=== PATIENT | male | born 1960 | race Caucasian/White ===

== ENCOUNTER 2016-11-26 10:37 | Emergency (ER) | payer MEDICARE, OTHER ==
[~2016-11-26] VITALS: Ht 172.7 cm; Wt 81.6 kg
[2016-11-26] MEDS ORDERED: IV NORMAL SALINE 500ML BAG 500 ML IV ONE (11:00)
[2016-11-26] MEDS ORDERED: MORPHINE SULFATE 4 MG/ML DISP.SYRIN. IV ONE ×2 (11:00→11:45)
[2016-11-26] MEDS ORDERED: IOHEXOL 300 MG/ML 75 ML VIAL IV ONE (11:00)
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
[2016-11-26 11:08] LABS: BASO % 0 % (0-3); EOS % 5 % (0-3); HEMATOCRIT 42.2 % (39.0-53.0); HEMOGLOBIN 14.6 g/dL (13.0-17.5); LYMPH # 1.3 x10^3/uL (1.0-4.8); LYMPH % 34 % (24-48); MEAN CORPUSCULAR HEMOGLOBIN 32 pg (25-35); MEAN CORPUSCULAR HGB CONC 35 g/dL (31-37); MEAN CORPUSCULAR VOLUME 91 fL (79-100); MONO % 10 % (0-9); NEUT % 50 % (31-73); PLATELET COUNT 143 x10^3/uL (140-400); RED BLOOD COUNT 4.62 x10^6/uL (4.30-5.70); RED CELL DISTRIBUTION WIDTH 13.6 % (11.5-14.5); WHITE BLOOD COUNT 3.9 x10^3/uL (4.0-11.0)
[2016-11-26 11:22] LABS: ALBUMIN 3.7 g/dL (3.4-5.0); DIRECT BILIRUBIN 0.2 mg/dL (0.0-0.2); TOTAL BILIRUBIN 0.5 mg/dL (0.2-1.0); TOTAL PROTEIN 7.5 g/dL (6.4-8.2)
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
[2016-11-26] MEDS ORDERED: IBUP-1060 PO (12:34)
[2016-11-26 12:35] VITALS: BP 125/87
--- NOTE | 2016-11-26 13:32 | EKG ---
[facility] [address] [place] [address] Test Date: 2016-11-26 Test Time: 10:45:11 Pat Name: CAROL NOLASCO Department: Room: Gender: M Distribution Technician: : 1960 Requested By: SARAH NAVARRO Order Number: [id number] Reading MD: Rupesh Crowley Measurements Intervals [place] Rate: 89 P: 73 FL: 146 QRS: 50 QRSD: 70 T: 78 QT: 360 QTc: 439 Interpretive Statements SINUS RHYTHM Electronically Signed On 11-26-2016 16:56:55 CDT by Rupesh Crowley
== END 2016-11-26 13:00 | disposition home or self-care (01) ==
LOC: ER 10:37
DX: S16.1XXA Strain of muscle, fascia and tendon at neck level, initial encounter (principal); R07.89 Other chest pain; R10.9 Unspecified abdominal pain; I10 Essential (primary) hypertension; J44.9 Chronic obstructive pulmonary disease, unspecified; M10.9 Gout, unspecified; Z88.4 Allergy status to anesthetic agent; V89.2XXA Person injured in unspecified motor-vehicle accident, traffic, initial encounter; Y93.89 Activity, other specified; Y99.8 Other external cause status; Y92.410 Unspecified street and highway as the place of occurrence of the external cause
CPT/HCPCS: 36415; 70450; 71260; 72125; 74177; 80047; 80076; 80320; 84484; 85027; 93005; 96361; 96374; 96376; 99285; J2270; J7040; Q9967; G0480

== ENCOUNTER 2017-03-17 19:18 | Emergency (ER) | payer OTHER ==
[~2017-03-17] VITALS: Ht 172.7 cm; Wt 79.4 kg
[~2017-03-17 19:18] MED LIST: IBUP-1060 PO
[2017-03-17] MEDS ORDERED: DIPHTH,PERTUSS(ACELL),TET TOX 0.5 ML DISP.SYRIN. VAX IM ONE ×2 (19:36→19:45)
[2017-03-17] MEDS ORDERED: ONDANSETRON PF 4 MG/2 ML VIAL. ONE (19:36)
[2017-03-17] MEDS ORDERED: MORPHINE SULFATE 4 MG/ML DISP.SYRIN. ONE (19:36)
[2017-03-17] MEDS ORDERED: ONDANSETRON PF 4 MG/2 ML VIAL. IV ONE (19:45)
[2017-03-17] MEDS ORDERED: IV NORMAL SALINE 1000ML BAG 1,000 ML IV ONE (19:45)
[2017-03-17] MEDS ORDERED: MORPHINE SULFATE 4 MG/ML DISP.SYRIN. IV ONE (19:45)
[2017-03-17] MEDS ORDERED: MORPHINE SULFATE 4 MG/ML DISP.SYRIN. IV/SQ PRN (20:00)
[2017-03-17] MEDS ORDERED: BACITRACIN/POLYMYXIN B TOPICAL OINT 15GM TUBE. TP SCH (20:00)
[2017-03-17] MEDS ORDERED: HYDROmorphone 2 MG/ML VIAL ONE (20:05)
[2017-03-17] MEDS ORDERED: HYDROmorphone 2 MG/ML VIAL IV ONE (20:15)
[2017-03-17 22:15] VITALS: BP 151/95
[2017-03-17] MEDS ORDERED: HYDR-971 PO (22:24)
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
== END 2017-03-17 22:24 | disposition left against medical advice (07) ==
LOC: ER 19:18
DX: T22.211A Burn of second degree of right forearm, initial encounter (principal); T31.0 Burns involving less than 10% of body surface; R09.02 Hypoxemia; J44.9 Chronic obstructive pulmonary disease, unspecified; I10 Essential (primary) hypertension; M10.9 Gout, unspecified; G89.29 Other chronic pain; Z88.4 Allergy status to anesthetic agent; X12.XXXA Contact with other hot fluids, initial encounter; Y93.89 Activity, other specified; Y92.89 Other specified places as the place of occurrence of the external cause; Y99.8 Other external cause status
CPT/HCPCS: 16020; 90471; 90715; 96361; 96374; 96375; 99284; J1170; J2060; J2270; J2405; J7030

== ENCOUNTER 2017-07-09 18:53 | Emergency (ER) | payer OTHER ==
[2017-07-09] MEDS: IV NORMAL SALINE 1000ML BAG 1,000 ML IV (19:45)
[2017-07-09 19:58] LABS: ADD MAN DIFF? NO
[2017-07-09 20:00] LABS: BASO % 1 % (0-3); EOS # 0.3 x10^3/uL (0.0-0.7); EOS % 7 % (0-3); HEMATOCRIT 42.3 % (39.0-53.0); HEMOGLOBIN 14.2 g/dL (13.0-17.5); LYMPH # 1.7 x10^3/uL (1.0-4.8); LYMPH % 41 % (24-48); MEAN CORPUSCULAR HEMOGLOBIN 32 pg (25-35); MEAN CORPUSCULAR HGB CONC 34 g/dL (31-37); MEAN CORPUSCULAR VOLUME 95 fL (79-100); MONO # 0.5 x10^3/uL (0.0-1.1); MONO % 11 % (0-9); NEUT # 1.7 x10^3uL (1.8-7.7); NEUT % 41 % (31-73); PLATELET COUNT 124 x10^3/uL (140-400); RED BLOOD COUNT 4.47 x10^6/uL (4.30-5.70); RED CELL DISTRIBUTION WIDTH 13.7 % (11.5-14.5); WHITE BLOOD COUNT 4.2 x10^3/uL (4.0-11.0)
[2017-07-09] MEDS: IPRATRPIUM/ALBUTEROL 0.5/2.5MG 3 ML NEBU. NEB (20:02)
[2017-07-09 20:11] LABS: ANION GAP 6 (6-14); BLOOD UREA NITROGEN 14 mg/dL (8-26); CALCIUM 8.3 mg/dL (8.5-10.1); CARBON DIOXIDE 31 mmol/L (21-32); CHLORIDE 101 mmol/L (98-107); CREATININE 1.1 mg/dL (0.7-1.3); GLUCOSE 77 mg/dL (70-99); INR 1.1 (0.8-1.1); PROTHROMBIN TIME PATIENT 13.2 SEC (11.7-14.0); SODIUM 138 mmol/L (136-145)
[2017-07-09 20:12] LABS: PARTIAL THROMBOPLASTIN TIME 30 SEC (24-38)
[2017-07-09 20:17] LABS: ETHANOL < 10 mg/dL (0-10)
[2017-07-09 20:19] LABS: ALBUMIN 3.6 g/dL (3.4-5.0); ALK PHOS 78 U/L (46-116); ALT (SGPT) 69 U/L (16-63); AST (SGOT) 57 U/L (15-37); DIRECT BILIRUBIN 0.3 mg/dL (0.0-0.2); MAGNESIUM 1.8 mg/dL (1.8-2.4); TOTAL BILIRUBIN 0.7 mg/dL (0.2-1.0); TOTAL PROTEIN 7.3 g/dL (6.4-8.2)
[2017-07-09 23:19] LABS: BARBITURATES POS (NEG); BENZODIAZEPINES POS (NEG); CANNABINOIDS NEG (NEG); COCAINE NEG (NEG); METHADONE POS (NEG); OPIATES NEG (NEG); PHENCYCLIDINE NEG (NEG)
[2017-07-09 23:20] LABS: AMPHETAMINE/METHAMPHETAMINE NEG (NEG); ETHANOL, URINE NEG (NEG)
== END 2017-07-09 23:19 | disposition home or self-care (01) ==
LOC: ER 18:53
DX: R41.82 Altered mental status, unspecified (principal); J44.9 Chronic obstructive pulmonary disease, unspecified; I10 Essential (primary) hypertension; G89.29 Other chronic pain; M10.9 Gout, unspecified; F11.10 Opioid abuse, uncomplicated; F19.10 Other psychoactive substance abuse, uncomplicated; Z88.8 Allergy status to other drugs, medicaments and biological substances
CPT/HCPCS: 36415; 80048; 80076; 80307; 83735; 85025; 85610; 85730; 93005; 94640; 96360; 99285-25; G0480; J7030; J7620

== ENCOUNTER 2018-03-28 07:38 | Emergency (ER) | payer OTHER ==
[2017-11-13 12:00] VITALS: BP 123/85
[~2018-03-28] VITALS: Ht 171.4 cm; Wt 83.9 kg
[~2018-03-28 07:38] MED LIST changes: +ALBU2.5V14 NEB; +HYDR-2766 PO; +HYDR-971 PO; +METH10TA2 PO; +OXYC5TAB95 PO
[2018-03-28] MEDS ORDERED: CONTRAST GIVEN. MC PRN (09:15)
[2018-03-28 09:20] LABS: BASO % 0 % (0-3); EOS # 0.1 x10^3/uL (0.0-0.7); EOS % 2 % (0-3); HEMATOCRIT 43.6 % (39.0-53.0); HEMOGLOBIN 14.7 g/dL (13.0-17.5); LYMPH # 0.9 x10^3/uL (1.0-4.8); LYMPH % 19 % (24-48); MEAN CORPUSCULAR HEMOGLOBIN 29 pg (25-35); MEAN CORPUSCULAR HGB CONC 34 g/dL (31-37); MEAN CORPUSCULAR VOLUME 87 fL (79-100); MONO # 0.4 x10^3/uL (0.0-1.1); MONO % 8 % (0-9); NEUT # 3.6 x10^3uL (1.8-7.7); NEUT % 72 % (31-73); PLATELET COUNT 115 x10^3/uL (140-400); RED BLOOD COUNT 5.03 x10^6/uL (4.30-5.70); RED CELL DISTRIBUTION WIDTH 17.2 % (11.5-14.5); WHITE BLOOD COUNT 5.1 x10^3/uL (4.0-11.0)
[2018-03-28 09:29] LABS: CALCIUM 9.5 mg/dL (8.5-10.1); CREATININE 0.9 mg/dL (0.7-1.3); GFR 86.7; POTASSIUM 3.8 mmol/L (3.5-5.1)
[2018-03-28] MEDS ORDERED: IOHEXOL 300 MG/ML 100ML VIAL. IV ONE (09:30)
--- NOTE | 2018-03-28 09:30 | EKG ---
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
[2018-03-28 09:36] LABS: MAGNESIUM 1.6 mg/dL (1.8-2.4); TOTAL BILIRUBIN 0.4 mg/dL (0.2-1.0); TOTAL PROTEIN 8.2 g/dL (6.4-8.2)
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
== END 2018-03-28 10:50 | disposition home or self-care (01) ==
LOC: ER 07:38
DX: G89.29 Other chronic pain (principal); R10.13 Epigastric pain; R41.0 Disorientation, unspecified; G93.1 Anoxic brain damage, not elsewhere classified; R47.81 Slurred speech; I10 Essential (primary) hypertension; J44.9 Chronic obstructive pulmonary disease, unspecified; M10.9 Gout, unspecified; Z90.89 Acquired absence of other organs; Z88.7 Allergy status to serum and vaccine; Z91.041 Radiographic dye allergy status
CPT/HCPCS: 36415; 70450; 74177; 80053; 83605; 83690; 83735; 85025; 93005; 99285; G0480; Q9967

== ENCOUNTER 2018-04-29 20:27 | Emergency (ER) | payer OTHER ==
[~2018-04-29] VITALS: Ht 172.7 cm; Wt 54.4 kg
[2018-04-29] MEDS ORDERED: IPRATRPIUM/ALBUTEROL 0.5/2.5MG 3 ML NEBU. NEB ONE (20:45)
[2018-04-29 21:20] LABS: BASO % 1 % (0-3); EOS # 0.1 x10^3/uL (0.0-0.7); EOS % 1 % (0-3); HEMATOCRIT 45.3 % (39.0-53.0); HEMOGLOBIN 15.4 g/dL (13.0-17.5); LYMPH # 0.7 x10^3/uL (1.0-4.8); LYMPH % 12 % (24-48); MEAN CORPUSCULAR HEMOGLOBIN 30 pg (25-35); MEAN CORPUSCULAR HGB CONC 34 g/dL (31-37); MEAN CORPUSCULAR VOLUME 89 fL (79-100); MONO # 0.3 x10^3/uL (0.0-1.1); MONO % 4 % (0-9); NEUT % 82 % (31-73); PLATELET COUNT 110 x10^3/uL (140-400); RED BLOOD COUNT 5.12 x10^6/uL (4.30-5.70); RED CELL DISTRIBUTION WIDTH 17.4 % (11.5-14.5); WHITE BLOOD COUNT 6.1 x10^3/uL (4.0-11.0)
[2018-04-29 22:15] LABS: CALCIUM 8.7 mg/dL (8.5-10.1); GFR 76.7; POTASSIUM 3.3 mmol/L (3.5-5.1)
[2018-04-29 22:20] LABS: ALBUMIN 3.5 g/dL (3.4-5.0); ALBUMIN/GLOBULIN RATIO 0.9 (1.0-1.7); TOTAL BILIRUBIN 0.4 mg/dL (0.2-1.0); TOTAL PROTEIN 7.3 g/dL (6.4-8.2)
--- NOTE | 2018-04-29 22:54 | RAD ---
Single view chest dated 04/29/2018. Comparison made to 11/10/2017. Clinical data indication: Shortness of breath. FINDINGS: Single upright portable exam performed. Heart and mediastinal contours are stable. There is some fullness at the bilateral hilum, left greater than right, somewhat more prominent from prior study. Prominent reticular markings along the bronchovascular bundles, also increased. No consolidation or pleural effusion. No pneumothorax. There is mild hyperinflation. IMPRESSION: 1. Prominent perihilar linear markings, increased from prior study. This could be related to acute or chronic bronchial inflammatory process. Low-grade interstitial edema is also possible. 2. Bilateral hilar fullness, nonspecific. This could be related to reactive adenopathy. Follow-up imaging after treatment to ensure resolution. 3. Emphysema. Electronically signed by: Jett Orozco MD (04/29/2018 10:50 PM) [facility]
[2018-04-29] MEDS ORDERED: POTASSIUM CHLORIDE 20 MEQ TABLET.ER. PO ONE (23:00)
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
[2018-04-29] MEDS ORDERED: IV NORMAL SALINE 1000ML BAG 1,000 ML IV ONE (23:15)
[2018-04-29 23:30] VITALS: BP 113/76
[2018-04-29] MEDS ORDERED: ALBU2.5V5 NEB (23:34)
[2018-04-29] MEDS ORDERED: DOXY100C2 PO (23:34)
== END 2018-04-29 23:46 | disposition home or self-care (01) ==
LOC: ER 20:27
DX: J40 Bronchitis, not specified as acute or chronic (principal); I10 Essential (primary) hypertension; I25.2 Old myocardial infarction; G89.29 Other chronic pain; M10.9 Gout, unspecified; M06.9 Rheumatoid arthritis, unspecified; F17.210 Nicotine dependence, cigarettes, uncomplicated; Z88.4 Allergy status to anesthetic agent; Z91.041 Radiographic dye allergy status
CPT/HCPCS: 36415; 71045; 80053; 85025; 94640; 99285; J7620